=== PATIENT | male | born 1930 | race Caucasian/White ===

== ENCOUNTER → 2018-05-17 | Outpatient (CLI) | payer OTHER ==
[~2018-05-17] MED LIST: CELE200 PO; DUTA.5 PO; MONT10T PO; MULVITMIND PO; OMEP20ER PO; POTCHL20ER PO; TRIA55OI; TRIHYD253A PO
== END | disposition home or self-care (01) ==
LOC: LAB SHORT 14:51 → PLD 14:51
DX: D48.5 Neoplasm of uncertain behavior of skin (principal)
CPT/HCPCS: 88305